=== PATIENT | male | born 1980 | race Caucasian/White ===

== ENCOUNTER 2020-12-07 19:25 | Emergency (ER) | payer BC ==
[2020-12-07] MEDS: Lidocaine 1% with EPINEPHrine 1:100,000 20 ML MDV INJECT ONE ×2 (20:10→20:40)
[2020-12-07] MEDS ORDERED: Bacitracin/Neomycin/Polymyxin B Oint 28.4 GM Tube ONE (20:45)
--- NOTE | 2020-12-07 20:55 | EDM.PDOC ---
ED HPI GENERAL MEDICAL PROBLEM - General Stated Complaint: RIGHT HAND INJURY Time Seen by Provider: 12/07/20 19:36 Source of Information: Reports: Patient History Limitations: Reports: No Limitations - History of Present Illness INITIAL COMMENTS - FREE TEXT/NARRATIVE: Patient presents with injury to right hand from an "exacto-knife" he was using on his fishing gear tonight. It bled quite a bit he says. NO paralysis or numbness. Last tetanus update was about three years ago in [facility] he says. We checked and confirmed. - Related Data Allergies Allergy/AdvReac Type Severity Reaction Status Date / Time codeine Allergy Dizziness Verified 02/05/18 01:03 Home Meds: Home Meds Albuterol [Ventolin HFA] 2 puff INH Q4H PRN 02/05/18 [History] Clindamycin HCl 150 mg PO QID #40 capsule 02/05/18 [Rx] Past Medical History Respiratory History: Reports: Asthma, Bronchitis, Recurrent, Other (See Below) Other Respiratory History: Exercise-induced asthma Genitourinary History: Reports: Renal Calculus, Other (See Below) Other Genitourinary History: Left-sided urolithiasis in his early 20s with spontaneous passage Musculoskeletal History: Reports: None. Denies: Amputation, Arthritis, Back Pain, Chronic, Fracture, Gout, Neck Pain, Chronic, Osteoarthritis, RA, SLE Endocrine/Metabolic History: Reports: Obesity/BMI 30+ Social & Family History - Living Situation & Occupation Living situation: Reports: (03/06/16, 1 daughter), with Family (His mother and stepfather live with him) Occupation: Employed ([employer]) Review of Systems - Review of Systems Review Of Systems: See Below Constitutional: Denies: Chills, Diaphoresis, Fever, Weakness Eyes: Reports: No Symptoms Ears: Reports: No Symptoms Nose: Reports: No Symptoms Mouth/Throat: Reports: No Symptoms Respiratory: Denies: Shortness of Breath, Cough Cardiovascular: Denies: Chest Pain, Lightheadedness, Syncope GI/Abdominal: Denies: Abdominal Pain, Nausea, Vomiting Musculoskeletal: Reports: Hand Pain. Denies: Neck Pain, Shoulder Pain, Arm Pain, Back Pain, Leg Pain, Foot Pain Skin: Denies: Cyanosis, Jaundice, Mottled, Pallor, Diaphoresis Neurological: Denies: Confusion, Dizziness, Headache, Seizure, Syncope, Trouble Speaking, Difficulty Walking ED EXAM, GENERAL - Physical Exam Exam: See Below Exam Limited By: No Limitations General Appearance: Alert, WD/WN, No Apparent Distress Eye Exam: Bilateral Eye: EOMI, Normal Inspection, PERRL Ears: Normal External Exam, Hearing Grossly Normal Nose: Normal Inspection, No Blood Throat/Mouth: Normal Inspection, Normal Lips, Normal Voice, No Airway Compromise Head: Atraumatic, Normocephalic Neck: Normal Inspection, Full Range of Motion Respiratory/Chest: No Respiratory Distress, Lungs Clear, Normal Breath Sounds Cardiovascular: Regular Rate, Rhythm, No Murmur Back Exam: Full Range of Motion Extremities: Normal Range of Motion, Normal Capillary Refill, Other (There is a laceration on dorsal right hand longitudinally between the extensor tendons of the index and long fingers. It is in the shape of an irregular wide "V". After anesthestic and soak in Hibiclens for 20+ minutes, I explored it and found no evidence of tendon, nerve or vascular injury.) Neurological: Alert, Oriented, Normal Cognition, No Motor/Sensory Deficits, Other (Distal CMS is intact throughout. Extensor tendon function against r esistance is normal. Sensation is intact.) Psychiatric: Normal Affect, Normal Mood Skin Exam: Warm, Dry, Normal Color, No Rash ED TRAUMA EXTREMITY PROCEDURES - Laceration/Wound Repair Right Dorsal Hand Lac/Wound Length In cm: 2.5 Appearance: Subcutaneous, Irregular Distal NVT: Neuro & Vascular Intact, No Tendon Injury Anesthetic Type: Local Local Anesthesia - Lidocaine (Xylocaine): 2% with EPI Local Anesthetic Volume: 3cc Skin Prep: Chlorhexidine (Hibiciens), Saline Exploration/Debridement/Repair: Wound Explored, In a Bloodless Field, Explored to Base, No Foreign Material Found Closed With: Sutures Suture Size: 4-0 # of Sutures: 4 Suture Type: Nylon, Interrupted, Simple Tetanus Status Addressed: Yes (3 years ago) Complications: No Course - Orders/Labs/Meds Meds: Medications Discontinued Medications Generic Name Dose Route Start Last Admin Trade Name Freq PRN Reason Stop Dose Admin Neomycin/Polymyxin/Bacitracin Confirm 12/07/20 20:45 Bacitracin/Neomycin/Polymyxin B Oint 28.4 Gm Tube Administered 12/07/20 20:46 Dose 28.4 gm .ROUTE .STK-MED ONE - Re-Assessments/Exams Free Text/Narrative Re-Assessment/Exam: 12/07/20 20:55 Discussed findings and treatment plan and expectations. Sterile technique was used to examine and close wound as above. Patient tolerated the procedure well. Discharged to home in stable condition. Departure - Departure Time of Disposition: 20:50 Disposition: Home, Self-Care 01 Condition: Good Clinical Impression: Laceration of hand Qualifiers: Encounter type: initial encounter Foreign body presence: without foreign body Laterality: right Qualified Code(s): S61.411A - Laceration without foreign body of right hand, initial encounter - Discharge Information Instructions: Laceration Care, Adult, Noxp-bi-Qlux Referrals: Kasey Borrego PA-C [Primary Care Provider] - Additional Instructions: Keep wound clean. You can wash it as needed under fresh running water. Use a topical antibiotic ointment or petroleum jelly on it after cleaning. Keep it covered with a sterile bandage when at risk for getting dirty or contaminated. Follow up with your PCP in 10 days for suture removal. Recheck sooner if any problems or sign of infection.
[2020-12-07] MEDS ORDERED: Bacitracin/Neomycin/Polymyxin B Oint 28.4 GM Tube TOP ONE (21:45)
== END 2020-12-07 21:00 | disposition home or self-care (01) ==
LOC: KA.ED 19:25
DX: S61.411A Laceration without foreign body of right hand, initial encounter (principal); J45.909 Unspecified asthma, uncomplicated; E66.9 Obesity, unspecified; Z68.34 Body mass index [BMI] 34.0-34.9, adult; Z88.5 Allergy status to narcotic agent; W26.0XXA Contact with knife, initial encounter
CPT/HCPCS: 12001; 99283; 99283-25

== ENCOUNTER 2022-09-30 20:45 | Emergency (ER) | payer BC ==
[2022-09-30] MEDS ORDERED: Lidocaine 2% with EPINEPHrine 1:200,000 20 ML SDV INJECT ONE (21:20)
[2022-09-30] MEDS: Lidocaine 2% with EPINEPHrine 1:200,000 20 ML SDV ONE ×2 (21:36→22:57)
[2022-09-30] MEDS ORDERED: Cephalexin 250 MG Cap PO SCH (22:00)
[2022-10-01] MEDS ORDERED: Ondansetron 4 MG/2 ML SDV IVPUSH ONE (06:50)
[2022-10-01] MEDS ORDERED: Sodium Chloride 0.9% 10 ML Syringe FLUSH PRN (06:50)
== END 2022-09-30 22:20 | disposition home or self-care (01) ==
LOC: KA.ED 20:45
DX: S60.450A Superficial foreign body of right index finger, initial encounter (principal); J45.909 Unspecified asthma, uncomplicated; E66.9 Obesity, unspecified; Z68.34 Body mass index [BMI] 34.0-34.9, adult; Z88.5 Allergy status to narcotic agent; Z79.899 Other long term (current) drug therapy; Z86.16 Personal history of COVID-19; W45.8XXA Other foreign body or object entering through skin, initial encounter
CPT/HCPCS: 64450; 99283; A9270-GY; J3490

== ENCOUNTER 2024-06-17 20:47 | Emergency (ER) | payer BC ==
[2024-06-17] MEDS: Ketorolac 30 MG/ML SDV IVPUSH ONE (21:36)
[2024-06-17] MEDS: Lisinopril 10 MG Tab PO ONE (21:36)
[2024-06-17] MEDS: Sodium Chloride 0.9% 1,000 ML IV ONE (21:37)
[2024-06-17] MEDS: hydrALAZINE 20 MG/ML SDV IVPUSH ONE ×2 (22:28→22:55)
== END 2024-06-18 00:30 | disposition home or self-care (01) ==
LOC: KA.ED 20:47
DX: G43.909 Migraine, unspecified, not intractable, without status migrainosus (principal); I10 Essential (primary) hypertension; J45.909 Unspecified asthma, uncomplicated; E66.9 Obesity, unspecified; Z88.5 Allergy status to narcotic agent; Z79.899 Other long term (current) drug therapy
CPT/HCPCS: 96361; 96374; 96375; 99283-25; A9270-GY; J0360; J1885; J7030